=== PATIENT | male | born 1990 | race Caucasian/White ===

== ENCOUNTER 2017-12-14 16:33 | Emergency (ER) | payer MEDICAID ==
[~2017-12-14] VITALS: Ht 188 cm; Wt 121.0 kg
[~2017-12-14 16:33] MED LIST: Z.0.NO CURRENT MEDS
[2017-12-14 16:41] VITALS: BP 135/74; PULSE 115; RESP 16; TEMP 102; O2SAT 97
[2017-12-14 17:16] VITALS: BP 142/74; PULSE 114; RESP 20; TEMP 102.7; O2SAT 98
--- NOTE | 2017-12-14 17:29 | PD ---
HPI Chief Complaint: Cold / Flu Symptoms Time Seen by Provider: 17:16 Travel History International Travel<30 days: No Contact w/Intl Traveler<30days: No Traveled to known affect area: No History of Present Illness HPI This was a 27-year-old male here with flulike illness times one day. He reports fever, body ache, nasal congestion, cough. Symptoms severity is moderate. He reports MAXIMUM TEMPERATURE of 101 which is brought down by OTC Tylenol yesterday. He has had no meds today. No foreign travel. He reports his young son was sick with flulike illness last week. He denies headache, neck pain, chest pain, shortness breath, abdominal pain, nausea, vomiting, diarrhea. PFSH Past Medical History Medical History: Denies Significant Hx Diminished Hearing: No Past Surgical History Other Surgery: Yes (RT KNEE FOR MRSA) Social History Alcohol Use: No Tobacco Use: No Substance Use: No Allergies-Medications (Allergen,Severity, Reaction): Coded Allergies: codeine (Unverified Allergy, Severe, Hallucinations, 12/14/17) Reported Meds & Prescriptions Reported Meds & Active Scripts Active No Active Prescriptions or Reported Medications Review of Systems Except as stated in HPI: all other systems reviewed are Neg General / Constitutional: Positive: Fever HENT: Positive: Sore Throat, Congestion Cardiovascular: No: Chest Pain or Discomfort Respiratory: Positive: Cough Gastrointestinal: No: Abdominal Pain Genitourinary: No: Dysuria Physical Exam Narrative GENERAL: Alert and well-appearing 27-year-old male SKIN: Warm and dry. No rash HEAD: Normocephalic. EYES: No scleral icterus. No injection or drainage. Ear/nose/throat: Clear nasal discharge. Mild pharyngeal erythema without tonsillar hypertrophy or exudate. Uvula is midline. Airway is patent. NECK: Supple. No meningismus CARDIOVASCULAR: Regular rate and rhythm without murmurs, gallops, or rubs. RESPIRATORY: Breath sounds equal bilaterally. No accessory muscle use. GASTROINTESTINAL: Abdomen soft, non-tender, nondistended. MUSCULOSKELETAL: No cyanosis, or edema. BACK: Nontender without obvious deformity. No CVA tenderness. Data Data Last Documented VS Vital Signs Date Time Temp Pulse Resp B/P (MAP) Pulse Ox O2 Delivery O2 Flow Rate FiO2 12/14/17 18:57 101.4 98 20 118/68 (85) 98 Room Air Orders Orders Influenzae A/B Antigen (12/14/17 17:21) Chest, Single Ap (12/14/17 ) Acetaminophen (Tylenol) (12/14/17 17:30) MDM Medical Decision Making Medical Screen Exam Complete: Yes Emergency Medical Condition: Yes Differential Diagnosis Influenza, pneumonia, bronchitis Narrative Course 27-year-old male here with flulike illness. Despite his fever he is nontoxic appearing. He had a fever of 102 on arrival. He was administered Tylenol. Influenza: Negative cxr: No acute disease All findings were discussed with patient. His fever reduced to 100.1 after Tylenol. Heart rate normalized to 94. He reports symptom improvement. I still strongly suspect that this is influenza. He was offered Tamiflu and declined. Return precautions were discussed. Patient verbalizes understanding and agrees to plan Diagnosis Primary Impression: Influenza-like illness Referrals: Primary Care Physician Departure Forms: Tests/Procedures, Work Release Enter return to work date: Dec 18, 2017 Additional Instructions: Tylenol 1000mg every 6 hours and/or ibuprofen 800mg every 6 hours for fever. Stay well hydrated by drinking water and Gatorade. Scripts No Active Prescriptions or Reported Meds Disposition: 01 DISCHARGE HOME Condition: Stable Leigh Parnell Dec 14, 2017 17:29
[2017-12-14] MEDS ORDERED: ACETAMINOPHEN 500 MG CPLT PO ONE (17:30)
--- NOTE | 2017-12-14 18:46 | RADRPT ---
EXAM DATE/TIME: 12/14/2017 17:39 [facility] COMPARISON: No previous studies available for comparison. INDICATIONS : Shortness of breath, fever, cough, and congestion. MEDICAL HISTORY : None. SURGICAL HISTORY : None. ENCOUNTER: Initial ACUITY: 1 day PAIN SCORE: 0/10 LOCATION: Bilateral chest FINDINGS: A single view of the chest demonstrates the lungs to be symmetrically aerated without evidence of mas s, infiltrate or effusion. The cardiomediastinal contours are unremarkable. Osseous structures are intact. CONCLUSION: No acute disease. Luis Alberto Choi MD on December 14, 2017 at 18:45 Board Certified Radiologist. This report was verified electronically.
[2017-12-14 18:57] VITALS: BP 118/68; PULSE 98; RESP 20; TEMP 101.4; O2SAT 98
[2017-12-14 19:55] VITALS: BP 126/68; PULSE 100; RESP 18; TEMP 100; O2SAT 97
== END 2017-12-14 19:59 | disposition home or self-care (01) ==
LOC: PHEFT 16:33
DX: R50.9 Fever, unspecified (principal); R52 Pain, unspecified; R09.81 Nasal congestion; R05 Cough; Z88.5 Allergy status to narcotic agent
CPT/HCPCS: 71045; 87804; 99284